=== PATIENT | male | born 1970 | race Asian ===

== ENCOUNTER 2020-11-13 20:33 | Emergency (ER) | payer BC, OTHER ==
[2020-11-13] MEDS ORDERED: Boostrix 0.5 ML (Tdap) VIAL ONE (21:36)
[2020-11-13] MEDS ORDERED: Bacitracin 1 PK ONE (21:40)
== END 2020-11-13 22:04 | disposition home or self-care (01) ==
LOC: ERS 20:33
DX: S00.83XA Contusion of other part of head, initial encounter (principal); S80.02XA Contusion of left knee, initial encounter; S80.01XA Contusion of right knee, initial encounter; S80.12XA Contusion of left lower leg, initial encounter; S80.11XA Contusion of right lower leg, initial encounter; W11.XXXA Fall on and from ladder, initial encounter; Z23 Encounter for immunization; Y92.009 Unspecified place in unspecified non-institutional (private) residence as the place of occurrence of the external cause
CPT/HCPCS: 70450; 70486; 72125; 90471; 90715